=== PATIENT | male | born 1990 | race Two or more races ===

== ENCOUNTER 2017-04-06 10:50 | Emergency (ER) | payer SELFPAY ==
[~2017-04-06] VITALS: Ht 177.8 cm; Wt 60.0 kg
[2017-04-06] MEDS ORDERED: ONDANSETRON ODT 4 MG ONE (11:02)
[2017-04-06] MEDS ORDERED: ONDANSETRON ODT 4 MG PO ONE (11:30)
[2017-04-06] MEDS ORDERED: SODIUM CHLORIDE 0.9% 1,000 ML IV ONE (13:14)
[2017-04-06] MEDS ORDERED: METOCLOPRAMIDE 5 MG/ML, 2ML ONE (13:22)
[2017-04-06] MEDS ORDERED: HALOPERIDOL 5 MG/ML ONE (13:22)
[2017-04-06] MEDS ORDERED: FAMOTIDINE 20 MG/2 ML ONE (13:22)
[2017-04-06] MEDS ORDERED: SODIUM CHLORIDE 0.9% 1,000ML IVBOLUS ONE (13:30)
[2017-04-06] MEDS ORDERED: HALOPERIDOL 5 MG/ML IV ONE (13:30)
[2017-04-06] MEDS ORDERED: FAMOTIDINE 20 MG/2 ML IVP ONE (13:30)
[2017-04-06] MEDS ORDERED: SODIUM CHLORIDE FLUSH 10ML SYR IVF ONE (13:30)
[2017-04-06] MEDS ORDERED: METOCLOPRAMIDE 5 MG/ML, 2ML IVPush ONE (13:30)
[2017-04-06 13:36] LABS: HEMOGLOBIN 16.5 g/dL (13.7-18.0); WHITE BLOOD COUNT 17.1 x10^3/uL (3.4-10)
[2017-04-06 13:47] LABS: ASPARTATE AMINO TRANSFERASE 19 U/L (15-37); BLOOD UREA NITROGEN 21 mg/dL (7-18)
[2017-04-06] MEDS ORDERED: OMNIPAQUE 350 MG/ML, 100ML BOTTLE ONE (15:05)
[2017-04-06] MEDS ORDERED: PROMETHAZINE 25 MG/ML, 1ML ONE (17:10)
[2017-04-06] MEDS ORDERED: PROMETHAZINE 25 MG/ML, 1ML IM ONE (17:30)
[2017-04-06 17:37] VITALS: BP 122/90
== END 2017-04-06 17:39 | disposition home or self-care (01) ==
LOC: ED 17:05
DX: K52.9 Noninfective gastroenteritis and colitis, unspecified (principal); F17.200 Nicotine dependence, unspecified, uncomplicated; G43.A0 Cyclical vomiting, in migraine, not intractable
CPT/HCPCS: 36415; 74020; 74177; 80053; 81003; 83690; 85025; 93005; 96361; 96372; 96374; 96375; 99285; J1630; J2550; J2765; J7030; Q0162; Q9967; S0028